=== PATIENT | female | born 1970 | race Caucasian/White ===

== ENCOUNTER → 2024-01-06 09:07 | Outpatient (REF) | payer OTHER, SELFPAY | LOC: HWWDC 09:07 | PROVIDERS: ATTENDING PHYSICIAN Obstetrics & Gynecology; FAMILY PHYSICIAN Physician Assistant Medical | DX: Z12.31 Encounter for screening mammogram for malignant neoplasm of breast (principal) | CPT/HCPCS: 77063; 77067 ==

== ENCOUNTER → 2024-01-28 09:19 | Outpatient (REF) | payer OTHER, SELFPAY | LOC: RCS 09:19 | PROVIDERS: ATTENDING PHYSICIAN Physician Assistant Medical | DX: I49.8 Other specified cardiac arrhythmias (principal) | CPT/HCPCS: 93225; 93226 ==

== ENCOUNTER → 2024-03-05 12:09 | Outpatient (REF) | payer OTHER, SELFPAY | LOC: HWRCS 12:09 | PROVIDERS: ATTENDING PHYSICIAN Physician Assistant Medical | DX: R00.2 Palpitations (principal) | CPT/HCPCS: 93306 ==

== ENCOUNTER → 2024-09-14 09:36 | Outpatient (REF) | payer OTHER, SELFPAY | LOC: WDC 09:36 | PROVIDERS: ATTENDING PHYSICIAN Physician Assistant Medical | DX: N64.4 Mastodynia (principal) | CPT/HCPCS: 76642; 77061; 77065 ==